=== PATIENT | female | born 1975 | race African-American/Black ===

== ENCOUNTER 2016-07-19 08:59 | Emergency (ER) | payer OTHER ==
[~2016-07-19] VITALS: Ht 167.6 cm; Wt 81.6 kg
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
[2016-07-19] MEDS ORDERED: PERCOCET 5-3251 EACH PO (10:13)
--- NOTE | 2016-07-19 10:19 | RADIOLOGY REPORT ---
EXAMINATION: XR WRIST, RIGHT CLINICAL INFORMATION: Trauma, deformity COMPARISON: None TECHNIQUE: AP, lateral, and oblique views of the right wrist. FINDINGS: Comminuted intra-articular distal radial fracture is seen with impaction and moderate dorsal angulation of the distal bone. Positive ulnar variance is seen. No carpal or metacarpal fracture is appreciated. There is adjacent soft tissue swelling. IMPRESSION: Comminuted and angulated intra-articular distal radial fracture. No associated ulnar styloid fracture is seen.
[2016-07-19 10:27] VITALS: BP 128/81
== END 2016-07-19 10:28 ==
LOC: ERH 08:59
DX: S52.571A Other intraarticular fracture of lower end of right radius, initial encounter for closed fracture (principal); W19.XXXA Unspecified fall, initial encounter; Y92.39 Other specified sports and athletic area as the place of occurrence of the external cause
CPT/HCPCS: 73110-RT